=== PATIENT | female | born 1945 | race Caucasian/White ===

== ENCOUNTER 2017-09-16 15:06 | Emergency (ER) | payer MEDICARE ==
[~2017-09-16] VITALS: Ht 157.5 cm; Wt 45.5 kg
[~2017-09-16 15:06] MED LIST: AMLO5 PO; ASCO500 PO; CYAN1000P IM; EXCETAB PO; LORTA5 PO; MEVA40TA PO; PRIL10CA PO; SOMA350T PO; THER2000 PO; XANA1TAB6 PO; ZOFR4TAB3 SL
[2017-09-16 15:12] VITALS: BP 145/67; PULSE 109; RESP 20; TEMP 97.6; O2SAT 100
[2017-09-16] MEDS ORDERED: SOMA350T PO (15:27)
[2017-09-16] MEDS ORDERED: XANA1TAB2 PO (15:27)
[2017-09-16] MEDS ORDERED: SODIUM CHLOR 0.9% 1000 ML INJ 1,000 ML IV SCH (15:35)
--- NOTE | 2017-09-16 15:43 | PD ---
HPI Chief Complaint: GI Complaint Time Seen by Provider: 15:35 Travel History International Travel<30 days: No Contact w/Intl Traveler<30days: No Traveled to known affect area: No History of Present Illness HPI 72-year-old female patient with history of COPD, anxiety, splenic cyst, presents to the ER today because she started having nausea, diarrhea, and abdominal cramping pain starting yesterday. She states the pain is up to a 7 out of 10. She denies any fevers but is having chills. She states that she did see some red blood in the bowel movement as well. She states the pain feels spasmodic. She does not know of any sick contacts. 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.) Endocrine: No Gastrointestinal Disorders: Yes (occ nausea) Genitourinary: No Hepatitis: No Hiatal Hernia: No Immune Disorder: No Kidney Stones: Yes Musculoskeletal: Yes (BACK PAIN) Neurologic: Yes (SCIATICA, NEUROPATHY) Psychiatric: Yes (ANXIETY) Reproductive: No Respiratory: Yes (COPD) Immunizations Current: Yes Thyroid Disease: No Past Surgical History Abdominal Surgery: Yes (cyst removal to spleen ) AICD: No Cholecystectomy: Yes Eye Surgery: Yes (BILAT CATARACT) Gynecologic Surgery: Yes (HYSTERECTOMY) Hysterectomy: Yes Joint Replacement: No Oral Surgery: Yes (tonsillectomy) Pacemaker: No Tonsillectomy: Yes Other Surgery: Yes Social History Alcohol Use: No Tobacco Use: Yes (/ PPD ) Substance Use: No Allergies-Medications (Allergen,Severity, Reaction): Coded Allergies: hydromorphone (Unverified Allergy, Severe, 09/16/17) meperidine (Unverified Allergy, Severe, 09/16/17) Uncoded Allergies: CODINE (Allergy, Severe, 01/30/16) Reported Meds & Prescriptions Reported Meds & Active Scripts Active Reported Soma (Carisoprodol) 350 Mg Tab 350 Mg PO TID PRN Xanax (Alprazolam) 1 Mg Tab 1 Mg PO TID PRN Review of Systems Except as stated in HPI: all other systems reviewed are Neg Physical Exam Narrative GENERAL: Well-developed elderly female patient currently in mild distress. Awake and oriented 3. SKIN: Focused skin assessment warm/dry. HEAD: Atraumatic. Normocephalic. EYES: Pupils equal and round. No scleral icterus. No injection or drainage. ENT: No nasal bleeding or discharge. Mucous membranes pink and moist. NECK: Trachea midline. No JVD. CARDIOVASCULAR: Regular rate and rhythm. No murmur appreciated. RESPIRATORY: No accessory muscle use. Clear to auscultation. Breath sounds equal bilaterally. GASTROINTESTINAL: Abdomen soft, periumbilical tenderness and milder diffuse tenderness throughout the abdomen without guarding or rebound, nondistended. Hepatic and splenic margins not palpable. RECTAL EXAM: No masses or tenderness, stool is reddish brown. Hemoccult positive. MUSCULOSKELETAL: No obvious deformities. No clubbing. No cyanosis. No edema. NEUROLOGICAL: Awake and alert. No obvious cranial nerve deficits. Motor grossly within normal limits. Normal speech. PSYCHIATRIC: Appropriate mood and affect; insight and judgment normal. Data Data Last Documented VS Vital Signs Date Time Temp Pulse Resp B/P (MAP) Pulse Ox O2 Delivery O2 Flow Rate FiO2 09/16/17 15:12 97.6 109 20 145/67 (93) 100 Orders Orders Complete Blood Count With Diff (09/16/17 15:35) Comprehensive Metabolic Panel (09/16/17 15:35) Lipase (09/16/17 15:35) Prothrombin Time / Inr (Pt) (09/16/17 15:35) Act Partial Throm Time (Ptt) (09/16/17 15:35) Urinalysis - C+S If Indicated (09/16/17 15:35) Ct Abd/Pel W Iv Contrast(Rout) (09/16/17 15:35) Iv Access Insert/Monitor (09/16/17 15:35) Ecg Monitoring (09/16/17 15:35) Oximetry (09/16/17 15:35) Sodium Chlor 0.9% 1000 Ml Inj (Ns 1000 M (09/16/17 15:35) Sodium Chloride 0.9% Flush (Ns Flush) (09/16/17 15:45) Dicyclomine Inj (Bentyl Inj) (09/16/17 15:45) Morphine Inj (Morphine Inj) (09/16/17 17:00) Iohexol 350 Inj (Omnipaque 350 Inj) (09/16/17 17:30) Ed Discharge Order (09/16/17 17:55) Labs Laboratory Tests Test 09/16/17 15:40 09/16/17 16:09 White Blood Count 13.8 TH/MM3 Red Blood Count 4.99 MIL/MM3 Hemoglobin 15.2 GM/DL Hematocrit 44.8 % Mean Corpuscular Volume 89.9 FL Mean Corpuscular Hemoglobin 30.6 PG Mean Corpuscular Hemoglobin Concent 34.0 % Red Cell Distribution Width 13.6 % Platelet Count 375 TH/MM3 Mean Platelet Volume 7.3 FL Neutrophils (%) (Auto) 59.5 % Lymphocytes (%) (Auto) 26.5 % Monocytes (%) (Auto) 11.3 % Eosinophils (%) (Auto) 1.8 % Basophils (%) (Auto) 0.9 % Neutrophils # (Auto) 8.2 TH/MM3 Lymphocytes # (Auto) 3.7 TH/MM3 Monocytes # (Auto) 1.6 TH/MM3 Eosinophils # (Auto) 0.2 TH/MM3 Basophils # (Auto) 0.1 TH/MM3 CBC Comment DIFF FINAL Differential Comment Prothrombin Time 9.9 SEC Prothromb Time International Ratio 1.0 RATIO Activated Partial Thromboplast Time 25.2 SEC Blood Urea Nitrogen 18 MG/DL Creatinine 0.80 MG/DL Random Glucose 98 MG/DL Total Protein 7.7 GM/DL Albumin 3.7 GM/DL Calcium Level 9.3 MG/DL Alkaline Phosphatase 119 U/L Aspartate Amino Transf (AST/SGOT) 20 U/L Alanine Aminotransferase (ALT/SGPT) 15 U/L Total Bilirubin 0.3 MG/DL Sodium Level 139 MEQ/L Potassium Level 4.1 MEQ/L Chloride Level 101 MEQ/L Carbon Dioxide Level 27.5 MEQ/L Anion Gap 11 MEQ/L Estimat Glomerular Filtration Rate 70 ML/MIN Lipase 150 U/L Urine Color LIGHT-YELLOW Urine Turbidity CLEAR Urine pH 6.5 Urine Specific [place] 1.006 Urine Protein NEG mg/dL Urine Glucose (UA) NEG mg/dL Urine Ketones NEG mg/dL Urine Occult Blood TRACE Urine Nitrite NEG Urine Bilirubin NEG Urine Urobilinogen LESS THAN 2.0 MG/DL Urine Leukocyte Esterase MOD Urine RBC LESS THAN 1 /hpf Urine WBC 4 /hpf Urine Squamous Epithelial Cells 3 /hpf Urine Amorphous Sediment RARE Urine Bacteria RARE /hpf Microscopic Urinalysis Comment CULT NOT INDICATED MDM Medical Decision Making Medical Screen Exam Complete: Yes Emergency Medical Condition: Yes Medical Record Reviewed: Yes Interpretation(s) Laboratory Tests Test 09/16/17 15:40 09/16/17 16:09 White Blood Count 13.8 TH/MM3 (4.0-11.0) Monocytes (%) (Auto) 11.3 % (0.0-8.0) Neutrophils # (Auto) 8.2 TH/MM3 (1.8-7.7) Monocytes # (Auto) 1.6 TH/MM3 (0-0.9) Alkaline Phosphatase 119 U/L (45-117) Estimat Glomerular Filtration Rate 70 ML/MIN (>89) Urine Occult Blood TRACE (NEG) Urine Leukocyte Esterase MOD (NEG) Urine Bacteria RARE /hpf (NONE) Last 24 hours Impressions Abdomen/Pelvis CT 09/16/17 1535 Signed Impressions: Service Date/Time: Saturday, September 16, 2017 17:07 - CONCLUSION: 1. Nonspecific colitis involving the splenic flexure and proximal descending colon. 2. Diffuse atherosclerotic disease and mild distal abdominal aortic aneurysm. 3. Colonic diverticulosis but no evidence of acute diverticulitis. Jonathan Sanchez MD Differential Diagnosis Colitis versus GI bleed versus gastroenteritis versus diverticulitis versus other acute intra-abdominal processes Narrative Course Lab work shows a slight UTI, leukocytosis, but was otherwise unremarkable. CAT scan shows colitis but no other signs of acute processes. At this point, patient is no longer vomiting in the ER. My plan would be to give her antibiotics as well as Flagyl and follow-up with Dr. Puentes. We will give her nausea medication and Imodium. Return for worsening in symptoms as necessary. The plan has been discussed with her and she states understanding. I suspect that the blood in the stool is secondary to colitis. [facility] Point of Care Internal Pos. & Neg. Controls: Passed Fecal Specimen Occult Blood: Positive Diagnosis Primary Impression: Colitis Med/Other Pt SpecificInfo: Prescription(s) given Scripts Loperamide (Imodium A-D) 2 Mg Capsule 2 MG PO Q6H Y for DIARRHEA, #30 CAP 0 Refills Prov: Milo Lea MD 09/16/17 Metronidazole (Flagyl) 500 Mg Tab 500 MG PO TID for Infection for 7 Days, TAB 0 Refills Prov: Milo Lea MD 09/16/17 Ciprofloxacin (Cipro) 500 Mg Tab 500 MG PO BID for Infection for 7 Days, #14 TAB 0 Refills Prov: Milo Lea MD 09/16/17 Ondansetron Odt (Zofran Odt) 4 Mg Tab 4 MG SL Q6HR Y for Nausea/Vomiting, #7 TAB 0 Refills Prov: Milo Lea MD 09/16/17 Disposition: 01 DISCHARGE HOME Condition: Stable Milo Lea MD September 16, 2017 15:43
[2017-09-16] MEDS ORDERED: DICYCLOMINE HCL 20 MG/2 ML VIAL IM ONE (15:45)
[2017-09-16] MEDS ORDERED: SODIUM CHLORIDE 0.9% FLUSH 10 ML FLUSH IV FLUSH PRN (15:45)
[2017-09-16 15:52] LABS: AUTOMATED NEUTROPHIL # 8.2 TH/MM3 (1.8-7.7); BASOPHIL # 0.1 TH/MM3 (0-0.2); BASOPHIL % 0.9 % (0.0-2.0); EOSINOPHIL # 0.2 TH/MM3 (0-0.4); EOSINOPHIL % 1.8 % (0.0-4.0); HEMATOCRIT 44.8 % (35.0-46.0); HEMOGLOBIN 15.2 GM/DL (11.6-15.3); LYMPH % 26.5 % (9.0-44.0); LYMPHOCYTE # 3.7 TH/MM3 (1.0-4.8); MEAN CELL VOLUME 89.9 FL (80.0-100.0); MEAN CORPUSCULAR HEMOGLOBIN 30.6 PG (27.0-34.0); MEAN PLATELET VOLUME 7.3 FL (7.0-11.0); MONO % 11.3 % (0.0-8.0); MONOCYTE # 1.6 TH/MM3 (0-0.9); NEUT % 59.5 % (16.0-70.0); PLATELET COUNT 375 TH/MM3 (150-450); RED BLOOD COUNT 4.99 MIL/MM3 (4.00-5.30); RED CELL DISTRIBUTION WIDTH 13.6 % (11.6-17.2); WHITE BLOOD COUNT 13.8 TH/MM3 (4.0-11.0)
[2017-09-16 16:01] LABS: PROTHROMBIN TIME - PATIENT 9.9 SEC (9.8-11.6)
[2017-09-16 16:15] LABS: ALBUMIN 3.7 GM/DL (3.4-5.0); AST (GOT) 20 U/L (15-37); BICARBONATE 27.5 MEQ/L (21.0-32.0); BLOOD UREA NITROGEN 18 MG/DL (7-18); CALCIUM 9.3 MG/DL (8.5-10.1); CHLORIDE 101 MEQ/L (98-107); GLOMERULAR FILTRATION RATE 70 ML/MIN (>89); GLUCOSE,RANDOM 98 MG/DL (74-106); SODIUM (NA) 139 MEQ/L (136-145)
[2017-09-16 16:21] LABS: ALKALINE PHOSPHATASE 119 U/L (45-117); ALT (GPT) 15 U/L (10-53); TOTAL BILIRUBIN ADULT 0.3 MG/DL (0.2-1.0); TOTAL PROTEIN 7.7 GM/DL (6.4-8.2)
[2017-09-16 16:30] LABS: AMORPHOUS SEDIMENT, URINE RARE; BACTERIA, URINE RARE /hpf; BILIRUBIN, URINE NEG (NEG); BLOOD, URINE TRACE (NEG); GLUCOSE,URINE NEG (NEG); KETONE, URINE NEG (NEG); NITRITE,URINE NEG (NEG); PH, URINE 6.5 (5.0-8.5); SQUAMOUS EPITHELIAL CELL URINE 3 /hpf (0-5); URINE COLOR LIGHT-YELLOW (YELLW/STRAW); URINE LEUKOCYTE ESTERASE MOD (NEG)
[2017-09-16] MEDS ORDERED: MORPHINE SULFATE 4 MG/ML INJ IV PUSH ONE (17:00)
[2017-09-16] MEDS ORDERED: IOHEXOL 350 MG/ML 10 ML VIAL (for RAD DIAG) IVCONTRAST ONE (17:30)
--- NOTE | 2017-09-16 17:43 | RADRPT ---
EXAM DATE/TIME: 09/16/2017 17:07 [facility] COMPARISON: CT ABDOMEN & PELVIS W CONTRAST, January 29, 2016, 10:57. INDICATIONS : Diffuse abdomen pain and rectal bleeding today. IV CONTRAST: 71 cc Omnipaque 350 (iohexol) IV ORAL CONTRAST: No oral contrast ingested. RADIATION DOSE: 6.64 CTDIvol (mGy) MEDICAL HISTORY : Carcinoma, basal cell. Cardiovascular disease SURGICAL HISTORY : Hysterectomy. Cholecystectomy. ENCOUNTER: Initial ACUITY: 1 day PAIN SCALE: 8/10 LOCATION: Bilateral abdomen TECHNIQUE: Volumetric scanning of the abdomen and pelvis was performed. Using automated exposure control and ad justment of the mA and/or kV according to patient size, radiation dose was kept as low as reasonably achievable to obtain optimal diagnostic quality images. DICOM format image data is available electro nically for review and comparison. FINDINGS: LOWER LUNGS: Calcified granuloma in the right lower lung. LIVER: Cholecystectomy clips. Liver within normal limits. SPLEEN: Normal size without lesion. PANCREAS: Within normal limits. KIDNEYS: Normal in size and shape. There is no mass, stone or hydronephrosis. ADRENAL GLANDS: Within normal limits. VASCULAR: Borderline distal abdominal aortic aneurysm measuring 2.9 cm in AP dimension. Diffuse aortic calcific ation. BOWEL/MESENTERY: Scattered colonic diverticula. No evidence of acute diverticulitis. Circumferential wall thickening o f the splenic flexure and proximal descending colon. No evidence of bowel dilatation. Appendix within normal limits. ABDOMINAL WALL: Within normal limits. RETROPERITONEUM: There is no lymphadenopathy. BLADDER: No wall thickening or mass. REPRODUCTIVE: Within normal limits. INGUINAL: There is no lymphadenopathy or hernia. MUSCULOSKELETAL: Within normal limits for patient age. CONCLUSION: 1. Nonspecific colitis involving the splenic flexure and proximal descending colon. 2. Diffuse atherosclerotic disease and mild distal abdominal aortic aneurysm. 3. Colonic diverticulosis but no evidence of acute diverticulitis. Jonathan Sanchez MD on September 16, 2017 at 17:34 Board Certified Radiologist. This report was verified electronically.
[2017-09-16] MEDS ORDERED: LOPE-1 PO (17:58)
[2017-09-16] MEDS ORDERED: METR-1 PO (17:58)
[2017-09-16] MEDS ORDERED: CIPR-9 PO (17:58)
[2017-09-16] MEDS ORDERED: ZOFR4TAB3 SL (17:58)
[2017-09-16 18:17] VITALS: BP 158/79
== END 2017-09-16 18:37 | disposition home or self-care (01) ==
LOC: NEPE 15:06
DX: K52.9 Noninfective gastroenteritis and colitis, unspecified (principal); F17.200 Nicotine dependence, unspecified, uncomplicated; F41.9 Anxiety disorder, unspecified
CPT/HCPCS: 74177; 80053; 81001; 83690; 85025; 85610; 85730; 96361; 96372; 96374; 99284; J0500; J2270; J7030; Q9967

== ENCOUNTER 2017-11-10 14:30 | Observation (INO) ==
[2017-11-11] MEDS ORDERED: Carisoprodol 350 MG Tablet PO PRN (03:27)
--- NOTE | 2017-11-11 07:34 | P.PN ---
Subjective Interval history: Follow up for dizziness, headache, elevated blood pressures. The patient reports feeling much better today. Denies any headache or dizziness. Denies any visual changes. She wants to go home. Thoroughly discussed importance of controlling her blood pressure, patient agrees to stay for blood pressure control today. She declines any further testing and she states of the echocardiogram is not done here, she will do it as outpatient. She denies any chest pain or shortness of breath. Discussed results of her carotid ultrasound. Patient is also complaining of some anxiety, requesting her Xanax be restarted. Physical Exam Vital signs: Vital Signs 11/11/17 03:47 Temperature 97.7 F Pulse Rate 61 Respiratory Rate 18 Blood Pressure 153/67 H Pulse Oximetry 97 Intake & Output 11/10/17 11/11/17 11/11/17 18:59 06:59 18:59 Weight 46 kg Narrative: GENERAL: Thin elderly female patient in [facility]. SKIN: Warm and dry. No rash. HEENT: Normocephalic. Atraumatic. Pupils equal and round. Mucous membranes pink and moist. NECK: Supple. Trachea midline. CARDIOVASCULAR: Regular rate and rhythm. No murmur appreciated. RESPIRATORY: No accessory muscle use. Clear to auscultation. Breath sounds equal bilaterally. GASTROINTESTINAL: Abdomen soft, non-tender, nondistended. Normoactive bowel sounds x4. MUSCULOSKELETAL: No obvious deformities. Extremities without clubbing, cyanosis , or edema. NEUROLOGICAL: Awake and alert. No obvious cranial nerve deficits. Motor grossly within normal limits. Moving all extremities spontaneously. Normal speech. PSYCHIATRIC: Slightly anxious mood; insight and judgment normal. Results - Labs CBC & Chem 7: 11/10/17 09:49 11/11/17 08:14 Laboratory Results - last 24 hr 11/10/17 11/10/17 11/10/17 09:49 09:49 09:49 WBC 8.5 RBC 4.80 Hgb 14.9 Hct 44.3 MCV 92.2 MCH 31.0 MCHC 33.6 RDW 13.5 Plt Count 329 MPV 8.0 Neut % (Auto) 66.1 Lymph % (Auto) 20.9 [place] % (Auto) 9.3 H Eos % (Auto) 2.7 Baso % (Auto) 1.0 Neut # (Auto) 5.6 Lymph # (Auto) 1.8 [place] # (Auto) 0.8 Eos # (Auto) 0.2 Baso # (Auto) 0.1 CBC Comment DIFF FINAL PT 9.7 L INR 1.0 APTT 26.4 Sodium 139 Potassium 3.4 L Chloride 104 Carbon Dioxide 28.0 Anion Gap 7 BUN 11 Creatinine 0.69 Estimated GFR 83 L Random Glucose 93 Calcium 8.6 Phosphorus 3.5 Magnesium 2.2 Total Bilirubin 0.5 AST 18 ALT 15 Alkaline Phosphatase 132 H Total Creatine Kinase 64 Troponin I LESS THAN 0.02 L Total Protein 8.0 Albumin 4.1 Urine Color Urine Turbidity Urine pH Ur Specific [place] Urine Protein Urine Glucose (UA) Urine Ketones Urine Occult Blood Urine Nitrite Urine Bilirubin Urine Urobilinogen Ur Leukocyte Esterase Urine RBC Urine WBC Urine Mucus Micro UA Comment Urine Opiates Screen Ur Barbiturates Screen Ur Amphetamines Screen U Benzodiazepines Scrn Urine Cocaine Screen U Cannabinoids Screen 11/10/17 11/10/17 11:03 11:03 WBC RBC Hgb Hct MCV MCH MCHC RDW Plt Count MPV Neut % (Auto) Lymph % (Auto) [place] % (Auto) Eos % (Auto) Baso % (Auto) Neut # (Auto) Lymph # (Auto) [place] # (Auto) Eos # (Auto) Baso # (Auto) CBC Comment PT INR APTT Sodium Potassium Chloride Carbon Dioxide Anion Gap BUN Creatinine Estimated GFR Random Glucose Calcium Phosphorus Magnesium Total Bilirubin AST ALT Alkaline Phosphatase Total Creatine Kinase Troponin I Total Protein Albumin Urine Color Straw Urine Turbidity CLEAR Urine pH 7.0 Ur Specific [place] 1.005 Urine Protein NEG Urine Glucose (UA) NEG Urine Ketones TRACE H Urine Occult Blood SMALL H Urine Nitrite NEG Urine Bilirubin NEG Urine Urobilinogen LESS THAN 2 Ur Leukocyte Esterase NEG Urine RBC 1 Urine WBC LESS THAN 1 Urine Mucus FEW H Micro UA Comment CULT NOT INDICATED Urine Opiates Screen NEG Ur Barbiturates Screen NEG Ur Amphetamines Screen NEG U Benzodiazepines Scrn POS H Urine Cocaine Screen NEG U Cannabinoids Screen NEG Assessment and Plan - Plan 72 year right-handed female presenting with sudden onset of dizziness and vertigo but the sensation is more of a forward rolling instead of spinning sensation and on presentation with elevated blood pressure. Patient denies any history of hypertension. Hypertensive urgency: presenting with dizziness, nausea, unsteady gait. S/p IV Vasotec, Lopressor, Antivert, Zofran. Improving. -CXR images reviewed, no acute findings -Head CT reviewed, no acute findings -Brain MRI show no acute findings; mild periventricular and subcortical white matter small vessel ischemic changes bilaterally; tiny old lacunar infarct right pepe -Carotid U/S shows stenosis of left ICA 50-60%, now right ICA stenosis -Monitor neuro checks. -Check echocardiogram, however patient refuses to wait in the hospital for this, can be done as outpatient -Get a lipid panel, TSH pending -Advised patient to stop taking Excedrin which contains pseudoephedrine which can contribute to hypertension -PT consulted. -continue clonidine 0,1 mg po q 6 prn for SBP > 160 -started amlodipine 5 mg daily -symptoms improving Hypokalemia: K 3.4 -given po KCl replacement -repeat labs Anxiety disorder: chronic -Continue patient's Xanax as needed History of chronic leg pain. - continue on Soma prn Tobacco Use: chronic -counseled on cessation DVT Prophylaxis: TEDs/SCDs Discharge Planning: Discharge pending BP control. Instructed Sadie SHAH, ok to discharge if 4pm Blood Pressure < 160. Patient and advised to obtain echocardiogram as outpatient since the patient refuses to stay in the hospital for this. Discharge patient to home Condition on discharge: Stable Heart Healthy diet as tolerated Ad Traci activity Rx written: Norvasc 10mg daily Follow-up with primary care physician Dr. Arguello within 1 week
[2017-11-11] MEDS ORDERED: amLODIPine 5 MG Tablet PO SCH (09:00)
[2017-11-11 12:24] LABS: HDL Cholesterol 62.2 mg/dL (40.0-60.0)
[2017-11-11 12:35] LABS: Anion Gap 9 meq/L (5-15); Blood Urea Nitrogen 15 mg/dL (7-18); Carbon Dioxide 27.8 meq/L (21.0-32.0); Chloride 104 meq/L (98-107); Glomerular Filtration Rate Greater Than 89 mL/min (>89); Glucose,Random 123 mg/dL (74-106); Sodium 141 meq/L (136-145)
[2017-11-11 12:36] LABS: Calcium 8.9 mg/dL (8.5-10.1); Chol/HDL Ratio 3.44 Ratio; Cholesterol 214 mg/dL (120-200); LDL Cholesterol,Calculated 128 mg/dL (0-99); Triglycerides 119 mg/dL (42-150)
[2017-11-11] MEDS ORDERED: amLODIPine 5 MG Tablet PO ONE (14:00)
== END 2017-11-11 20:39 | disposition home or self-care (01) ==
LOC: UNDODISOB → NEPGCP 14:30 → NEDA 14:30 → NEPGCP 20:13
PROVIDERS: ADMIT Hospitalist; ATTEND Hospitalist